=== PATIENT | female | born 1990 | race Caucasian/White ===

== ENCOUNTER 2016-11-17 18:50 | Observation (INO) | payer MEDICAID ==
[~2016-11-17] VITALS: Ht 154.9 cm; Wt 63.5 kg
[~2016-11-17 18:50] MED LIST: PREN-88 PO
== END 2016-11-17 19:50 | disposition home or self-care (01) ==
LOC: L&D 18:50
PROVIDERS: ADMIT Specialist; ATTEND Specialist
DX: O26.893 Other specified pregnancy related conditions, third trimester (principal); Z3A.38 38 weeks gestation of pregnancy
CPT/HCPCS: G0378

== ENCOUNTER 2016-11-27 04:01 | Inpatient (IN) | payer MEDICAID ==
[~2016-11-27] VITALS: Ht 152.4 cm; Wt 69.9 kg
[2016-11-27] MEDS ORDERED: DEXT 5%/LR + PITOCIN 20UNITS/L 1,000 ML IV SCH ×2 (04:53→09:48)
[2016-11-27] MEDS ORDERED: NALOXONE HCL 0.4 MG/ML 1ML VIAL IM PRN (05:00)
[2016-11-27] MEDS ORDERED: LIDOCAINE HCL 1% 20ML VIAL (Pyxis) INJ INFIL SCH (05:00)
[2016-11-27] MEDS ORDERED: METHYLERGONOVINE MALEATE 0.2 MG/ML IM PRN ×2 (05:00→10:00)
[2016-11-27] MEDS ORDERED: BUTORPHANOL TARTRATE 2 MG/ML VIAL IV PRN (05:00)
[2016-11-27] MEDS ORDERED: CARBOPROST TROMETHAMINE 250 MCG/ML AMPUL IM PRN (05:00)
[2016-11-27] MEDS ORDERED: PENICILLIN G POTASSIUM 5 MMU in DEXT 5% WATER 100 ML IV SCH (05:00)
[2016-11-27] MEDS: LACTATED RINGERS 1,000 ML IV SCH ×3 (05:36→07:31)
[2016-11-27 05:44] LABS: BASOPHILS % 0.5 % (0.0-2.0); EOSINOPHILS % 0.6 % (0.0-5.0); HEMATOCRIT. 30.6 % (36.0-48.0); HEMOGLOBIN. 10.2 g/dL (12.0-16.0); LYMPHOCYTES % 22.4 % (20.0-50.0); MEAN CORPUSCULAR HGB CONC 33.4 g/dL (31.0-37.0); MEAN CORPUSCULAR VOLUME 80.7 fL (81.0-99.0); MEAN PLATELET VOLUME 8.9 fl (7.4-10.4); MONOCYTES % 4.4 % (2.0-8.0); NEUTROPHILS % 72.1 % (40.0-76.0); PLATELET 166 x1000/uL (130-400); RED BLOOD CELL COUNT 3.79 mill/uL (4.2-5.4); WHITE BLOOD COUNT 10.2 x1000/uL (4.5-11.0)
[2016-11-27 05:54] LABS: INR 0.9; PARTIAL THROMBOPLASTIN TIME 25.6 sec (24.0-34.0); PROTHROMBIN TIME 9.3 sec
[2016-11-27 05:57] LABS: CLARITY URINE CLEAR (CLEAR); COLOR URINE YELLOW (YELLOW); GLUCOSE URINE NEGATIVE (NEGATIVE); KETONES URINE NEGATIVE (NEGATIVE); LEUKOCYTE ESTERASE URINE 2+ (NEGATIVE); NITRITE URINE NEGATIVE (NEGATIVE); OCCULT BLOOD URINE 2+ (NEGATIVE); PH URINE 6.5 (4.5-8.0); PROTEIN URINE NEGATIVE (NEGATIVE); SPECIFIC GRAVITY URINE 1.014 (1.005-1.030); UROBILINOGEN URINE 0.2 E.U./dL (0.2-1.0)
[2016-11-27 06:16] LABS: *AMPHETAMINES SCREEN URINE NEGATIVE (NEGATIVE); *BARBITURATES SCREEN URINE NEGATIVE (NEGATIVE); *BENZODIAZEPINES SCREEN URINE NEGATIVE (NEGATIVE); *COCAINE SCREEN URINE NEGATIVE (NEGATIVE); CANNABINOID URINE SCREEN NEGATIVE (NEGATIVE); ECSTASY MDMA SCREEN URINE NEGATIVE (NEGATIVE); METHADONE URINE SCREEN NEGATIVE (NEGATIVE); OPIATES URINE SCREEN NEGATIVE (NEGATIVE); PHENCYCLIDINE URINE SCREEN NEGATIVE (NEGATIVE)
[2016-11-27 06:17] LABS: BACTERIA URINE TRACE; RBC URINE 0-2 /hpf (0-2); SQUAMOUS EPITHELIAL CELL URINE FEW /lpf (RARE/1+)
[2016-11-27 06:18] LABS: RUBELLA IGG 99.2 IU/mL (4.99-10)
[2016-11-27 06:19] LABS: HEPATITIS B SURFACE ANTIGEN NEGATIVE
[2016-11-27] MEDS ORDERED: FENTANYL CITRATE/PF 50MCG/ML 5ML VIAL ONE (06:25)
[2016-11-27] MEDS ORDERED: BUPIVACAINE HCL/PF 0.25% (2.5MG/ML) 10ML ONE (06:25)
[2016-11-27] MEDS ORDERED: BUPIVACAINE HCL/NS/PF EPIDURAL 100 ML EP ONE (06:25)
[2016-11-27] MEDS ORDERED: BUPIVACAINE HCL/NS/PF EPIDURAL 100 ML EP SCH (08:00)
[2016-11-27] MEDS ORDERED: DIPHENHYDRAMINE 50MG/ML VIAL IV PRN (08:00)
[2016-11-27] MEDS ORDERED: ONDANSETRON HCL 4MG/2ML VIAL IV PRN (08:00)
[2016-11-27] MEDS ORDERED: PENICILLIN G POTASSIUM 2.5 MMU in DEXTROSE 5% WATER 50 ML IV SCH (09:00)
[2016-11-27] MEDS ORDERED: RHO(D) IMMUNE GLOBULIN 300 MCG/SYR IM PRN (10:00)
[2016-11-27] MEDS ORDERED: IBUPROFEN 400MG TABLET PO PRN (10:00)
[2016-11-27] MEDS ORDERED: LANOLIN OINT 0.25 GM TUBE TOP PRN (10:00)
[2016-11-27 11:30] VITALS: BP 110/69
[2016-11-27 12:31] VITALS: BP 109/66
[2016-11-27 13:24] LABS: BASOPHILS % 0.1 % (0.0-2.0); HEMATOCRIT. 29.1 % (36.0-48.0); HEMOGLOBIN. 9.6 g/dL (12.0-16.0); LYMPHOCYTES % 7.5 % (20.0-50.0); MEAN CORPUSCULAR HEMOGLOBIN 26.4 pg (28.0-32.0); MEAN CORPUSCULAR HGB CONC 32.9 g/dL (31.0-37.0); MEAN CORPUSCULAR VOLUME 80.4 fL (81.0-99.0); MEAN PLATELET VOLUME 8.3 fl (7.4-10.4); MONOCYTES % 4.6 % (2.0-8.0); NEUTROPHILS % 87.8 % (40.0-76.0); PLATELET 146 x1000/uL (130-400); RED BLOOD CELL COUNT 3.62 mill/uL (4.2-5.4); WHITE BLOOD COUNT 13.5 x1000/uL (4.5-11.0)
[2016-11-27] MEDS: IBUPROFEN 800MG TABLET PO PRN (16:36)
[2016-11-28] VITALS: BP 92/51
[2016-11-28 07:56] VITALS: BP 99/55
[2016-11-28] MEDS: PRENATAL VIT/FE FUMARATE/FA TABLET PO SCH (08:39)
[2016-11-28 16:05] VITALS: BP 106/62
[2016-11-28 19:30] VITALS: BP 111/71
[2016-11-28] MEDS: IBUPROFEN 800MG TABLET PO PRN (20:24)
[2016-11-29 05:30] VITALS: BP 109/70
[2016-11-29 07:35] VITALS: BP 90/55
[2016-11-29] MEDS: PRENATAL VIT/FE FUMARATE/FA TABLET PO SCH (09:00)
== END 2016-11-29 17:39 | disposition home or self-care (01) | DRG 560 ==
LOC: L&D 04:01 → OBSVTOIN 04:01 → 7EST PP/OB 11:58
PROVIDERS: ADMIT Obstetrics & Gynecology; ATTEND Obstetrics & Gynecology
PROC: 0HQ9XZZ Repair Perineum Skin, External Approach (ICD-10-PCS; 2016-11-27)
PROC: 3E0S3BZ Introduction of Anesthetic Agent into Epidural Space, Percutaneous Approach (ICD-10-PCS; 2016-11-27)
PROC: 00HU33Z Insertion of Infusion Device into Spinal Canal, Percutaneous Approach (ICD-10-PCS; 2016-11-27)
PROC: 10E0XZZ Delivery of Products of Conception, External Approach (ICD-10-PCS; principal; 2016-11-27 13:38)
DX: O48.0 Post-term pregnancy (principal); D62 Acute posthemorrhagic anemia; Z3A.40 40 weeks gestation of pregnancy; O70.0 First degree perineal laceration during delivery; O99.02 Anemia complicating childbirth; Z37.0 Single live birth
CPT/HCPCS: 36415; 80305; 81001; 85025; 85610; 85730; 86592; 86703; 86762; 86850; 86900; 87340; J0595; J2540; J2590; J3010; J3490; J7060; J7120; A4315

== ENCOUNTER 2017-03-26 05:04 | Emergency (ER) | payer MEDICAID ==
[~2017-03-26] VITALS: Ht 165.1 cm; Wt 48.0 kg
[2017-03-26] MEDS ORDERED: SODIUM CHLORIDE 0.9% 1,000 ML IV ONE (06:15)
[2017-03-26] MEDS ORDERED: ONDANSETRON HCL 4MG/2ML VIAL IV ONE (06:15)
[2017-03-26 06:24] LABS: BASOPHILS % 0.2 % (0.0-2.0); EOSINOPHILS % 0.4 % (0.0-5.0); HEMATOCRIT. 34.9 % (36.0-48.0); HEMOGLOBIN. 11.7 g/dL (12.0-16.0); LYMPHOCYTES % 29.7 % (20.0-50.0); MEAN CORPUSCULAR HEMOGLOBIN 28.5 pg (28.0-32.0); MEAN CORPUSCULAR VOLUME 85.1 fL (81.0-99.0); MEAN PLATELET VOLUME 7.6 fl (7.4-10.4); MONOCYTES % 6.1 % (2.0-8.0); NEUTROPHILS % 63.6 % (40.0-76.0); PLATELET 147 x1000/uL (130-400); RED CELL DISTRIBUTION WIDTH 14.3 % (11.6-14.6)
[2017-03-26 06:37] LABS: CARBON DIOXIDE 27 mEq/L (21-32); CHLORIDE 105 mEq/L (98-107)
[2017-03-26] MEDS ORDERED: MECLIZINE 25MG TABLET PO ONE (07:15)
[2017-03-26 07:27] LABS: CLARITY URINE CLOUDY (CLEAR); COLOR URINE YELLOW (YELLOW); GLUCOSE URINE NEGATIVE (NEGATIVE); KETONES URINE NEGATIVE (NEGATIVE); LEUKOCYTE ESTERASE URINE 2+ (NEGATIVE); NITRITE URINE NEGATIVE (NEGATIVE); OCCULT BLOOD URINE NEGATIVE (NEGATIVE); PROTEIN URINE NEGATIVE (NEGATIVE); SPECIFIC GRAVITY URINE 1.033 (1.005-1.030)
[2017-03-26 09:03] VITALS: BP 99/60
== END 2017-03-26 09:07 | disposition home or self-care (01) ==
LOC: ER 06:19
DX: N39.0 Urinary tract infection, site not specified (principal); R42 Dizziness and giddiness
CPT/HCPCS: 36415; 80048; 81001; 81025; 85025; 96361; 96374; 99284; J2405; J7030; Z7610; J8597

== ENCOUNTER 2018-06-02 06:27 | Inpatient (IN) | payer MEDICAID ==
[~2018-06-02] VITALS: Ht 154.9 cm; Wt 68.5 kg
[2018-06-02] MEDS ORDERED: DEXT 5%/LR + PITOCIN 20UNITS/L 1,000 ML IV SCH ×2 (07:18→09:35)
[2018-06-02] MEDS ORDERED: LACTATED RINGERS 1,000 ML IV SCH ×2 (07:18→07:45)
[2018-06-02] MEDS ORDERED: NALOXONE HCL 0.4 MG/ML 1ML VIAL IM PRN (07:30)
[2018-06-02] MEDS ORDERED: METHYLERGONOVINE MALEATE 0.2 MG/ML IM PRN (07:30)
[2018-06-02] MEDS ORDERED: LIDOCAINE HCL 1% 20ML VIAL (Pyxis) INJ INFIL SCH (07:30)
[2018-06-02] MEDS ORDERED: CARBOPROST TROMETHAMINE 250 MCG/ML AMPUL IM PRN (07:30)
[2018-06-02] MEDS ORDERED: BUTORPHANOL TARTRATE 2 MG/ML VIAL IV PRN (07:30)
[2018-06-02 07:57] LABS: CLARITY URINE CLOUDY (CLEAR); COLOR URINE YELLOW (YELLOW); KETONES URINE NEGATIVE (NEGATIVE); LEUKOCYTE ESTERASE URINE 3+ (NEGATIVE); NITRITE URINE NEGATIVE (NEGATIVE); OCCULT BLOOD URINE 3+ (NEGATIVE); PROTEIN URINE NEGATIVE (NEGATIVE); UROBILINOGEN URINE 0.2 E.U./dL (0.2-1.0)
[2018-06-02] MEDS ORDERED: PENICILLIN G POTASSIUM 5 MMU in DEXT 5% WATER 100 ML IV SCH (08:00)
[2018-06-02 08:04] LABS: BASOPHILS % 0.3 % (0.0-2.0); EOSINOPHILS % 0.5 % (0.0-5.0); HEMATOCRIT. 31.2 % (36.0-48.0); HEMOGLOBIN. 10.3 g/dL (12.0-16.0); LYMPHOCYTES % 26.6 % (20.0-50.0); MEAN CORPUSCULAR HEMOGLOBIN 26.7 pg (28.0-32.0); MEAN CORPUSCULAR VOLUME 80.8 fL (81.0-99.0); MEAN PLATELET VOLUME 8.7 fl (7.4-10.4); MONOCYTES % 4.4 % (2.0-8.0); NEUTROPHILS % 68.2 % (40.0-76.0); PLATELET 179 x1000/uL (130-400); RED BLOOD CELL COUNT 3.86 mill/uL (4.2-5.4); RED CELL DISTRIBUTION WIDTH 15.9 % (11.6-14.6)
[2018-06-02 08:05] LABS: PARTIAL THROMBOPLASTIN TIME 25.6 sec (23.4-31.0); PROTHROMBIN TIME 9.6 sec (9.1-11.1)
[2018-06-02] MEDS ORDERED: BUPIVACAINE HCL/PF 0.25% (2.5MG/ML) 10ML ONE (08:21)
[2018-06-02] MEDS ORDERED: FENTANYL CITRATE/PF 50MCG/ML 2ML VIAL ONE (08:22)
[2018-06-02 09:10] LABS: *AMPHETAMINES SCREEN URINE NEGATIVE (NEGATIVE)
[2018-06-02 09:17] LABS: *BARBITURATES SCREEN URINE NEGATIVE (NEGATIVE); *BENZODIAZEPINES SCREEN URINE NEGATIVE (NEGATIVE); *COCAINE SCREEN URINE NEGATIVE (NEGATIVE); CANNABINOID URINE SCREEN NEGATIVE (NEGATIVE); METHADONE URINE SCREEN NEGATIVE (NEGATIVE); OPIATES URINE SCREEN NEGATIVE (NEGATIVE); PHENCYCLIDINE URINE SCREEN NEGATIVE (NEGATIVE)
[2018-06-02] MEDS ORDERED: LANOLIN OINT 0.25 GM TUBE TOP PRN (09:45)
[2018-06-02] MEDS ORDERED: TETANUS, DIPHTHERIA, PERTUSSIS VAC/PF 0.5ML (>7YR OLD) IM ONE (09:45)
[2018-06-02] MEDS ORDERED: ACETAMINOPHEN WITH CODEINE 300/30MG TABLET PO PRN (09:45)
[2018-06-02] MEDS ORDERED: GLYCERIN/WITCH HAZEL LEAF MEDICATED PAD TOP PRN (09:45)
[2018-06-02] MEDS ORDERED: HEMORRHOIDAL SUPP PR PRN (09:45)
[2018-06-02] MEDS ORDERED: RHO(D) IMMUNE GLOBULIN 300 MCG/SYR IM PRN (09:45)
[2018-06-02] MEDS ORDERED: DIPHENHYDRAMINE 25MG CAPSULE PO PRN (09:45)
[2018-06-02] MEDS ORDERED: BENZOCAINE/LANOLIN/ALOE VERA SPRAY TOP PRN (09:45)
[2018-06-02] MEDS ORDERED: IBUPROFEN 400MG TABLET PO PRN (09:45)
[2018-06-02] MEDS ORDERED: INFLUENZA VIRUS VACCINE(AFLURIA) 0.5ML SYR IM ONE (09:45)
[2018-06-02 11:10] VITALS: BP 108/53
[2018-06-02 11:40] VITALS: BP 101/57
[2018-06-02 12:10] VITALS: BP 98/51
[2018-06-02] MEDS: SIMETHICONE 80MG TABLET CHEW PO SCH ×2 (13:00→21:13)
[2018-06-02 13:51] LABS: HEPATITIS B SURFACE ANTIGEN NEGATIVE
[2018-06-02] MEDS ORDERED: PENICILLIN G POTASSIUM 2.5 MMU in DEXTROSE 5% WATER 50 ML IV SCH (14:00)
[2018-06-02 20:50] VITALS: BP 98/55
[2018-06-02] MEDS: IBUPROFEN 800MG TABLET PO PRN (21:12)
[2018-06-02] MEDS: DOCUSATE SODIUM 100MG CAPSULE PO SCH (21:13)
[2018-06-03 04:00] VITALS: BP 92/51
[2018-06-03 07:03] LABS: BASOPHILS % 0.2 % (0.0-2.0); EOSINOPHILS % 0.7 % (0.0-5.0); HEMATOCRIT. 28.2 % (36.0-48.0); HEMOGLOBIN. 9.2 g/dL (12.0-16.0); LYMPHOCYTES % 31.5 % (20.0-50.0); MEAN CORPUSCULAR HEMOGLOBIN 26.7 pg (28.0-32.0); MEAN CORPUSCULAR VOLUME 81.6 fL (81.0-99.0); MEAN PLATELET VOLUME 8.8 fl (7.4-10.4); MONOCYTES % 4.4 % (2.0-8.0); NEUTROPHILS % 63.2 % (40.0-76.0); PLATELET 160 x1000/uL (130-400); RED BLOOD CELL COUNT 3.46 mill/uL (4.2-5.4); RED CELL DISTRIBUTION WIDTH 16.2 % (11.6-14.6)
[2018-06-03 08:15] VITALS: BP 90/44
[2018-06-03] MEDS: SIMETHICONE 80MG TABLET CHEW PO SCH ×4 (09:24→21:00)
[2018-06-03] MEDS: PRENATAL VIT/FE FUMARATE/FA TABLET PO SCH (09:24)
[2018-06-03] MEDS: FERROUS SULFATE 325MG TABLET PO SCH ×2 (12:59→17:57)
[2018-06-03 16:12] VITALS: BP 98/48
[2018-06-03] MEDS: IBUPROFEN 800MG TABLET PO PRN (20:22)
[2018-06-03] MEDS: DOCUSATE SODIUM 100MG CAPSULE PO SCH (21:00)
[2018-06-03 21:30] VITALS: BP 94/47
[2018-06-04 05:40] VITALS: BP 95/48
[2018-06-04 08:41] VITALS: BP 93/51
[2018-06-04] MEDS: SIMETHICONE 80MG TABLET CHEW PO SCH (09:38)
[2018-06-04] MEDS: PRENATAL VIT/FE FUMARATE/FA TABLET PO SCH (09:39)
[2018-06-04] MEDS: FERROUS SULFATE 325MG TABLET PO SCH (09:39)
[2018-06-04] MEDS: IBUPROFEN 800MG TABLET PO PRN (09:39)
[2018-06-04] MEDS ORDERED: MEDROXYPROGESTERONE ACETATE 150MG/ML VIAL IM SCH (10:00)
== END 2018-06-04 11:20 | disposition home or self-care (01) | DRG 560 ==
LOC: L&D 06:27 → OBSVTOIN 09:06 → 7EST PP/OB 11:51
PROVIDERS: ADMIT Specialist; ATTEND Specialist
PROC: 3E0R3BZ Introduction of Anesthetic Agent into Spinal Canal, Percutaneous Approach (ICD-10-PCS; 2018-06-02)
PROC: 00HU33Z Insertion of Infusion Device into Spinal Canal, Percutaneous Approach (ICD-10-PCS; 2018-06-02)
PROC: 10E0XZZ Delivery of Products of Conception, External Approach (ICD-10-PCS; principal; 2018-06-02 09:06)
DX: O99.02 Anemia complicating childbirth (principal); D64.9 Anemia, unspecified; Z3A.40 40 weeks gestation of pregnancy; Z37.0 Single live birth; Z23 Encounter for immunization
CPT/HCPCS: 36415; 80305; 86592; 86703; 86762; 86850; 86900; 87077; 87340; 90715; 99281; G0378; J0595; J1050; J2310; J2540; J2590; J3010; J3490; J7060; J7120

== ENCOUNTER 2019-02-03 18:56 | Emergency (ER) | payer MEDICAID ==
[~2019-02-03] VITALS: Ht 154.9 cm; Wt 70.6 kg
[2019-02-03 19:26] VITALS: BP 98/62
[2019-02-03 20:28] LABS: CLARITY URINE TURBID (CLEAR); COLOR URINE YELLOW (YELLOW); KETONES URINE TRACE (NEGATIVE); LEUKOCYTE ESTERASE URINE 2+ (NEGATIVE); NITRITE URINE NEGATIVE (NEGATIVE); OCCULT BLOOD URINE TRACE (NEGATIVE); PROTEIN URINE NEGATIVE (NEGATIVE); SPECIFIC GRAVITY URINE 1.037 (1.005-1.030)
== END 2019-02-03 21:15 | disposition left against medical advice (07) ==
LOC: ER 18:56
DX: Z53.21 Procedure and treatment not carried out due to patient leaving prior to being seen by health care provider (principal); R10.9 Unspecified abdominal pain